=== PATIENT | female | born 1990 | race Caucasian/White ===

== ENCOUNTER 2020-03-24 16:39 | Emergency (ER) | payer BC ==
[2020-03-24 16:53] VITALS: RESP 18; TEMP 98.3
--- NOTE | 2020-03-24 17:15 | ED ---
Psych HPI - General Chief Complaint: Psychiatric Symptoms Stated Complaint: Anxiety Time Seen by Provider: 03/24/20 16:59 Source: patient, RN notes reviewed, old records reviewed Mode of arrival: ambulatory - History of Present Illness Initial Comments: This is a 30-year-old female DEL with 4-5 days of increasing stress and anxiety seen here until thoughts telling her to commit suicide. Patient does have 2 children at home, at home. Patient has no recent increase chest stroke her mom's house today for hours away here in town and mom brought her to the ER can she knows her daughter wasn't acting appropriately. Physical history of psychiatric illness not currently on psychiatric medications MD Complaint: suicidal ideation, feels depressed -: days(s) Associated Psychiatric Symptoms: suicidal ideation, racing thoughts Quality: constant Improves With: none Worsens With: none Context: not taking psychiatric medications, significant life stressor Associated Symptoms: denies other symptoms Treatments Prior to Arrival: placed on mental health hold - Related Data Allergies Allergy/AdvReac Type Severity Reaction Status Date / Time No Known Allergies Allergy Verified 03/24/20 16:50 Review of Systems ROS Statement: Those systems with pertinent positive or pertinent negative responses have been documented in the HPI. ROS Other: All systems not noted in ROS Statement are negative. Past Medical History Additional Past Medical History / Comment(s): kidney stones History of Any Multi-Drug Resistant Organisms: None Reported Past Surgical History: Orthopedic Surgery Past Psychological History: Anxiety, Depression Smoking Status: Never smoker Past Alcohol Use History: None Reported Past Drug Use History: None Reported General Exam Limitations: altered mental status General appearance: alert, in no apparent distress Head exam: Present: atraumatic, normocephalic, normal inspection Eye exam: Present: normal appearance, PERRL, EOMI. Absent: scleral icterus, conjunctival injection, periorbital swelling ENT exam: Present: normal exam, mucous membranes moist Neck exam: Present: normal inspection. Absent: tenderness, meningismus, lymphadenopathy Respiratory exam: Present: normal lung sounds bilaterally. Absent: respiratory distress, wheezes, rales, rhonchi, stridor Cardiovascular Exam: Present: regular rate, normal rhythm, normal heart sounds. Absent: systolic murmur, diastolic murmur, rubs, gallop, clicks GI/Abdominal exam: Present: soft, normal bowel sounds. Absent: distended, tenderness, guarding, rebound, rigid Extremities exam: Present: normal inspection, full ROM, normal capillary refill. Absent: tenderness, pedal edema, joint swelling, calf tenderness Back exam: Present: normal inspection Neurological exam: Present: alert, oriented X3, CN II-XII intact Psychiatric exam: Present: normal affect, normal mood Skin exam: Present: warm, dry, intact, normal color. Absent: rash Course Vital Signs 03/24/20 03/24/20 03/24/20 16:50 17:38 18:09 Temperature 98.3 F Pulse Rate 111 H Respiratory 18 18 18 Rate Blood Pressure 124/65 O2 Sat by Pulse 99 Oximetry - Reevaluation(s) Reevaluation #1: 03/24/20 18:25 Medical records reviewed 03/24/20 18:25 Medical clear for psychiatric evaluation Medical Decision Making - Medical Decision Making 30 female in anxiety coming in for psychiatric evaluation patient given anxiolysis and can be discharged home Disposition Clinical Impression: Acute anxiety Disposition: HOME SELF-CARE Condition: Fair Instructions (If sedation given, give patient instructions): Anxiety (ED), Anxiolysis in Adults (ED) Is patient prescribed a controlled substance at d/c from ED?: No Referrals: Nonstaff,Physician [Primary Care Provider] - 1-2 days
[2020-03-24] MEDS ORDERED: LORazepam 1 MG TAB PO STA ×2 (20:27)
[2020-03-24 20:49] VITALS: BP 124/75; PULSE 98
== END 2020-03-24 20:49 | disposition home or self-care (01) ==
LOC: EC 16:39
DX: F41.9 Anxiety disorder, unspecified (principal); R45.851 Suicidal ideations; F32.9 Major depressive disorder, single episode, unspecified; R41.82 Altered mental status, unspecified
CPT/HCPCS: 82075; 99285